=== PATIENT | female | born 1940 | race Caucasian/White ===

== ENCOUNTER → 2018-07-17 | Outpatient (CLI) | payer MEDICARE, OTHER ==
[~2018-07-17] VITALS: Ht 147.3 cm; Wt 81.8 kg
[~2018-07-17] MED LIST: ASPI-1182 PO; ATOR40TA28 PO; BRIM15OS OD; BRINOS OD; CARV3 PO; CYAN100T3 PO; FERR-89 PO; FOLI1 PO; FURO40 PO; GABA-531 PO; INSU100V12 SQ; INSU500V SQ; LEVO75 PO; LOSA25TA41 PO; LUBI24CA2 PO; NITR0.4T50 SL; PANT40TA25 PO; POTA25TA7 PO; VITAD1000 PO
[2018-07-17 11:36] VITALS: BP 106/60
== END | disposition home or self-care (01) ==
LOC: HBOWC 11:06
PROVIDERS: ATTEND Internal Medicine
DX: T87.89 Other complications of amputation stump (principal); S81.002A Unspecified open wound, left knee, initial encounter; E11.628 Type 2 diabetes mellitus with other skin complications; L90.9 Atrophic disorder of skin, unspecified; E03.9 Hypothyroidism, unspecified; I25.10 Atherosclerotic heart disease of native coronary artery without angina pectoris; E11.22 Type 2 diabetes mellitus with diabetic chronic kidney disease; I12.9 Hypertensive chronic kidney disease with stage 1 through stage 4 chronic kidney disease, or unspecified chronic kidney disease; N18.9 Chronic kidney disease, unspecified; E11.69 Type 2 diabetes mellitus with other specified complication; M86.171 Other acute osteomyelitis, right ankle and foot; E11.36 Type 2 diabetes mellitus with diabetic cataract; Z79.4 Long term (current) use of insulin; Z86.73 Personal history of transient ischemic attack (TIA), and cerebral infarction without residual deficits; Y83.5 Amputation of limb(s) as the cause of abnormal reaction of the patient, or of later complication, without mention of misadventure at the time of the procedure; X58.XXXA Exposure to other specified factors, initial encounter; Y93.89 Activity, other specified; Y92.89 Other specified places as the place of occurrence of the external cause; Y99.8 Other external cause status
CPT/HCPCS: 97597; G0463

== ENCOUNTER → 2018-07-24 | Outpatient (CLI) | payer MEDICARE, OTHER ==
[~2018-07-24] MED LIST changes: -ASPI-1182 PO; -LOSA25TA41 PO
[2018-07-24 10:48] VITALS: BP 119/54
== END | disposition home or self-care (01) ==
LOC: HBOWC 09:25
PROVIDERS: ATTEND Internal Medicine
DX: T87.89 Other complications of amputation stump (principal); L90.9 Atrophic disorder of skin, unspecified; E11.628 Type 2 diabetes mellitus with other skin complications; E03.9 Hypothyroidism, unspecified; I25.10 Atherosclerotic heart disease of native coronary artery without angina pectoris; E11.22 Type 2 diabetes mellitus with diabetic chronic kidney disease; I12.9 Hypertensive chronic kidney disease with stage 1 through stage 4 chronic kidney disease, or unspecified chronic kidney disease; N18.9 Chronic kidney disease, unspecified; E11.69 Type 2 diabetes mellitus with other specified complication; M86.171 Other acute osteomyelitis, right ankle and foot; E11.36 Type 2 diabetes mellitus with diabetic cataract; Z86.73 Personal history of transient ischemic attack (TIA), and cerebral infarction without residual deficits; Z79.4 Long term (current) use of insulin; Y83.5 Amputation of limb(s) as the cause of abnormal reaction of the patient, or of later complication, without mention of misadventure at the time of the procedure